=== PATIENT | female | born 1995 | race Caucasian/White ===

== ENCOUNTER 2024-02-28 14:54 | Inpatient (IN) | payer OTHER ==
[~2024-02-28 14:54] MED LIST: Ibuprofen 800 MG TAB PO PRN; Lidocaine 1% (PF) 30 ML VIAL SC PRN; Ondansetron PF 4 MG/2 ML Vial IVP PRN; Oxytocin 30 units/NS 500 ML 500 ML IV SCH; Promethazine HCl 25 MG/ML VIAL IM PRN; hydrALAZINE 20 MG/ML VIAL SLOW IVP PRN
[2024-02-28] MEDS ORDERED: Misoprostol 100 MCG TAB ONE (20:31)
[2024-02-29] MEDS ORDERED: Acetaminophen 500 MG TAB ONE (01:15)
[2024-02-29] MEDS ORDERED: Famotidine/PF 20 mg/2ml Vial SLOW IVP PRN (02:08)
[2024-02-29] MEDS ORDERED: Bicitra 30 ML UDCUP PO PRN (02:08)
[2024-02-29] MEDS ORDERED: fentaNYL 50 mcg/mL 1 mL Vial SLOW IVP PRN ×2 (05:55→07:27)
[2024-02-29] MEDS ORDERED: Ketorolac Tromethamine 30 MG (1 mL) VIAL IVP SCH (07:27)
[2024-02-29] MEDS ORDERED: Morphine 4 MG/ML VIAL SLOW IVP PRN (07:27)
[2024-02-29] MEDS ORDERED: Ondansetron PF 4 MG/2 ML Vial IVP PRN ×2 (07:27→23:00)
[2024-02-29] MEDS ORDERED: Meperidine HCl/PF 25 MG (1 mL) VIAL IV PRN (07:27)
[2024-02-29] MEDS ORDERED: Misoprostol 100 MCG TAB ONE (09:51)
[2024-02-29] MEDS ORDERED: CEFAZOLIN 2 GM VIAL ONE (14:32)
[2024-02-29] MEDS ORDERED: Famotidine/PF 20 mg/2ml Vial ONE (14:44)
[2024-02-29] MEDS ORDERED: Morphine PF 10 MG/10 ML VIAL ONE (14:58)
[2024-02-29] MEDS ORDERED: Ondansetron PF 4 MG/2 ML Vial ONE (15:10)
[2024-02-29] MEDS ORDERED: Dexamethasone 10 MG/ML VIAL ONE (15:10)
[2024-02-29] MEDS ORDERED: Azithromycin 500 MG VIAL ONE (15:11)
[2024-02-29] MEDS ORDERED: PHENYLEPHRINE-NS 100 MCG/ML 10 ML SYRINGE ONE (15:11)
[2024-02-29] MEDS ORDERED: Oxytocin 10 UNITS/ML VIAL ONE (15:11)
[2024-02-29] MEDS ORDERED: Tranexamic Acid 1,000 MG/10 ML VIAL ONE (15:30)
[2024-02-29] MEDS ORDERED: Hepatitis B Vaccine 10 MCG/0.5 ML SYR ONE (16:07)
[2024-02-29] MEDS ORDERED: Oxytocin 30 units/NS 500 ML 500 ML IVPB SCH ×2 (16:15→21:00)
[2024-02-29] MEDS ORDERED: Misoprostol 200 MCG TAB PR PRN (16:15)
[2024-02-29] MEDS ORDERED: Bisacodyl 10 MG SUPP PR PRN (16:15)
[2024-02-29] MEDS ORDERED: Simethicone Chewable 80 MG TAB PO PRN (16:15)
[2024-02-29] MEDS ORDERED: Lanolin Ointment 7 GM TUBE TOP PRN (16:15)
[2024-02-29] MEDS ORDERED: Ondansetron PF 4 MG/2 ML Vial SLOW IVP PRN (16:15)
[2024-02-29] MEDS ORDERED: Methylergonovine 0.2 MG/ML VIAL IM PRN (16:15)
[2024-02-29] MEDS ORDERED: Acetaminophen 325 MG TAB PO PRN (16:15)
[2024-02-29] MEDS ORDERED: Boostrix 0.5 ML (Tdap) VIAL (>/=7 yrs of age) IM ONE (16:15)
[2024-02-29] MEDS ORDERED: NO PO,IM,IV OR SC NARCOTICS FOR 12HR EXCEPT BY ANESTHESIA PO SCH (19:00)
[2024-02-29] MEDS ORDERED: Ketorolac Tromethamine 30 MG (1 mL) VIAL IVP PRN (19:00)
[2024-02-29] MEDS ORDERED: Promethazine HCl 25 MG/ML VIAL IM PRN (19:23)
[2024-02-29] MEDS ORDERED: hydrALAZINE 20 MG/ML VIAL SLOW IVP PRN (22:44)
[2024-02-29] MEDS ORDERED: Moisturizing Cream (Eucerin) 113 GM JAR TOP PRN (23:00)
[2024-02-29] MEDS ORDERED: diphenhydrAMINE 50 MG/ML VIAL IVP PRN (23:00)
[2024-02-29] MEDS ORDERED: Naloxone HCl 0.4 mg/ml Vial IV PRN ×3 (23:00)
[2024-02-29 23:08] LABS: HBsAg Index 0.16 S/CO (0-0.99); HIV (1/2) Antibody/Antigen NonReactive (NonReactive); Hep B Surf Ag - L&D NonReactive S/CO (NonReactive); Syphilis Antibody Nonreactive (Nonreactive)
[2024-02-29 23:09] LABS: Syphilis Antibody Index 0.05 S/CO (<1.00 Non-Reactive)
[2024-02-29 23:19] LABS: #Basophils 0.03 10x3/uL (0.0-0.2); #Eosinophils 0.08 10x3/uL (0.0-0.5); #Monocytes 0.74 10x3/uL (0.0-1.1); #Neutrophils 6.17 10x3/uL (1.5-8.4); %Basophils 0.4 % (0.0-2.0); %Lymphocytes 15.4 % (18.0-47.0); %Monocytes 8.8 % (0.0-10.0); %Neutrophils 73.7 % (40.0-75.0); Hematocrit 29.6 % (34.9-44.5); Hemoglobin 10.1 g/dL (12.0-15.5); Mean Corpuscular HGB CONC 34.1 g/dL (32.0-36.0); Mean Corpuscular Hemoglobin 30.1 pg (27.0-33.0); Mean Corpuscular Volume 88.4 fL (81.6-98.3); Mean Platelet Volume 10.6 fL (7.4-10.4); Platelet Count 221 10x3/uL (150-450); RBC Distribution Width 13.4 % (11.5-14.5); Red Blood Cell (RBC) Count 3.35 10x6/uL (3.90-5.03); White Blood Cell (WBC) Count 8.4 10x3/uL (3.5-10.5)
[2024-03-01] MEDS: Misoprostol 100 MCG TAB PO SCH (04:00)
[2024-03-01] MEDS: Lactated Ringer's 1,000 ML IV SCH (04:00)
[2024-03-01] MEDS: Ketorolac Tromethamine 30 MG (1 mL) VIAL ONE (04:02)
[2024-03-01] MEDS: Acetaminophen 325 MG TAB ONE (04:04)
[2024-03-01] MEDS: Azithromycin 500 MG in Sodium Chloride 0.9% 250 ML 250 ML IVPB SCH (04:06)
[2024-03-01] MEDS: CEFAZOLIN 2 GM in Sodium Chloride 0.9% 100 ML IVPB SCH (04:06)
[2024-03-01] MEDS: Ibuprofen 800 MG TAB PO SCH ×2 (04:07→09:30)
[2024-03-01 04:45] LABS: Hematocrit 28.3 % (34.9-44.5); Hemoglobin 9.4 g/dL (12.0-15.5); Mean Corpuscular HGB CONC 33.2 g/dL (32.0-36.0); Mean Corpuscular Hemoglobin 29.5 pg (27.0-33.0); Mean Corpuscular Volume 88.7 fL (81.6-98.3); Mean Platelet Volume 10.3 fL (7.4-10.4); Platelet Count 190 10x3/uL (150-450); RBC Distribution Width 13.2 % (11.5-14.5); Red Blood Cell (RBC) Count 3.19 10x6/uL (3.90-5.03); White Blood Cell (WBC) Count 12.1 10x3/uL (3.5-10.5)
[2024-03-01] MEDS ORDERED: HYDROcodone/Acetaminophen 5/325 mg Tablet PO PRN (07:41)
[2024-03-01] MEDS ORDERED: Measles/Mumps/Rubella 10 MCG/0.5 ML VIAL SC ONE (07:46)
[2024-03-01] MEDS ORDERED: diphenhydrAMINE 25 MG CAP PO PRN (09:18)
[2024-03-01] MEDS: Prenatal Vitamin 1 TAB PO SCH (09:30)
[2024-03-01] MEDS: Docusate 100 MG CAP PO SCH (09:30)
[2024-03-01] MEDS: diphenhydrAMINE 25 MG CAP ONE (09:35)
[2024-03-01] MEDS: Acetaminophen 500 MG TAB PO PRN (10:51)
[2024-03-01] MEDS: HYDROcodone/Acetaminophen 5/325 mg Tablet PO PRN (12:03)
[2024-03-01] MEDS ORDERED: Ibuprofen 800 MG TAB PO PRN (13:00)
[2024-03-01 21:09] VITALS: BMI 37.0
[2024-03-02 08:08] VITALS: BP 132/74; TEMP 97.1
== END 2024-03-02 10:25 | disposition home or self-care (01) | DRG 788 ==
LOC: CSHLD 14:54 → CSHPP 02-29 18:05 → CSHLD 02-29 18:26 → UNDOADMIN 02-29 18:26
PROVIDERS: ADMIT Family Medicine; ATTEND Family Medicine
PROC: 10D00Z1 Extraction of Products of Conception, Low, Open Approach (ICD-10-PCS; principal; 2024-02-29)
DX: O99.214 Obesity complicating childbirth (principal); E66.9 Obesity, unspecified; Z3A.38 38 weeks gestation of pregnancy; Z37.0 Single live birth
CPT/HCPCS: 36415; 51702; 76815; 85025; 85027; 86780; 86850; 86900; 86901; 87340; 87389; 87480; 87510; 87660; 99285; J1100; J2274; J2405; J2590